=== PATIENT | female | born 1995 | race Caucasian/White ===

== ENCOUNTER 2021-11-29 10:56 | Emergency (ER) | payer OTHER ==
[~2021-11-29] VITALS: Ht 154.9 cm; Wt 49.9 kg
== END 2021-11-29 13:09 | disposition home or self-care (01) ==
LOC: ER 10:56
DX: N76.4 Abscess of vulva (principal); B96.89 Other specified bacterial agents as the cause of diseases classified elsewhere; Z16.39 Resistance to other specified antimicrobial drug

== ENCOUNTER 2021-12-08 10:30 | Emergency (ER) | payer OTHER ==
[~2021-12-08] VITALS: Ht 154.9 cm; Wt 49.9 kg
== END 2021-12-08 13:06 | disposition home or self-care (01) ==
LOC: ER 10:30
DX: B34.9 Viral infection, unspecified (principal); R21 Rash and other nonspecific skin eruption